=== PATIENT | male | born 1985 | race Caucasian/White ===

== ENCOUNTER 2020-11-19 21:28 | Emergency (ER) | payer SELFPAY ==
[2020-11-19 21:35] VITALS: BP 139/72
--- NOTE | 2020-11-19 21:43 | Event Note ---
ED Screening Note Date of service: 11/19/20 Time: 21:41 ED Screening Note: Patient is a 35-year-old male with history of GERD who presented for epigastric pain x3 days. Symptoms described as pressure to epigastrium. Symptoms are exacerbated by eating and recumbent position. Symptoms are relieved by nothing tried. Patient denies nausea vomiting. States pain is getting progressively worse. Urine is scantchange based on patients health status, clinical progression and re-assessment by fellow clinical providers in the ED. Further treatment and workup at subsequent clinical providers discretion. Patient/guardian urged not to elope from the ED as their condition may be serious if not clinically assessed and managed. Initial orders include: cbc, cmp, ua, lipase
[2020-11-19 22:29] LABS: Basophils # (Auto) 0.1 K/mm3 (0.0-0.1); Basophils % (Auto) 1.1 % (0.0-1.8); Eosinophils # (Auto) 0.4 K/mm3 (0.0-0.4); Eosinophils % (Auto) 7.1 % (0.0-4.3); Hematocrit 44.9 % (35.5-45.6); Hemoglobin 15.1 gm/dl (11.8-15.2); Lymphocytes % (Auto) 34.3 % (13.4-35.0); Mean Corpuscular HGB Conc 34 % (32-34); Mean Corpuscular Volume 92 fl (84-94); Monocytes # (Auto) 0.4 K/mm3 (0.0-0.8); Monocytes % (Auto) 6.7 % (0.0-7.3); Platelet Count 224 K/mm3 (140-440); Red Blood Count 4.87 M/mm3 (3.65-5.03); Red Cell Distribution Width 12.6 % (13.2-15.2)
[2020-11-19] MEDS ORDERED: FAMOTIDINE 20 MG TAB PO ONE (22:33)
[2020-11-19] MEDS ORDERED: SUCRALFATE 1 GM/10 ML ORAL LIQD PO ONE (22:33)
--- NOTE | 2020-11-19 22:38 | Emergency Department Report ---
ED General Adult HPI - General Chief complaint: Abdominal Pain Stated complaint: ABDOMINAL PAIN PUI?: No Time Seen by Provider: 11/19/20 22:07 Source: patient, RN notes reviewed, old records reviewed Mode of arrival: Ambulatory Limitations: No Limitations - History of Present Illness Initial comments: The patient was evaluated in the emergency department for symptoms described in the history of present illness. He/she was evaluated in the context of the global COVID-19 pandemic, which necessitated consideration that the patient might be at risk for infection with the virus that causes COVID-19. Institutional protocols and algorithms that pertain to the evaluation of patients at risk for COVID-19 are in a state of rapid change based on information released by regulatory bodies including the CDC and federal and state organizations. These policies and algorithms were followed during the patient's care in the emergency department. Please note that these policies, procedures and recommendations changed on a rapid basis. The patient is a 35-year-old gentleman. He is not known to myself previously. He is currently visiting the [employer] from [facility], for a work-related project. He has medical [place] from [place] with [place], including an upper endoscopy performed within the past year and a half, negative for H. pylori, positive for antral gastritis, also had a right upper quadrant ultrasound, which demonstrated fatty liver disease, but no acute findings. He was diagnosed with gastritis so he says, and placed on a proton pump inhibitor, Dexilant. He reports that he Was presumptively diagnosed with GERD/gastritis, likely secondary to NSAID consumption, and alcohol use. He presents to the ER today with a complaint of epigastric burning, which started approximately 2 days ago, prior to the initiation of his flight. He denies headache, neck pain, chest pain, shortness of breath, vomiting, diaphoresis, hematemesis, bright red blood per rectum, urinary symptoms and testicular pain. The pain is cramping, and is relieved with rest, worsens with certain position, and worsened with certain food. Patient denies NSAID consumption, as well as alcohol consumption. -: Gradual, days(s) Location: abdomen Radiation: non-radiation Severity scale (0 -10): 6 Quality: aching Consistency: other Improves with: other Worsens with: other - Related Data Previous Rx's Medication Instructions Recorded Last Taken Type Acetaminophen [Non-Aspirin Extra 500 mg PO Q6HR PRN #30 tablet 11/19/20 Unknown Rx Strength] Famotidine [Pepcid] 20 mg PO BID #60 tablet 11/19/20 Unknown Rx Allergies Allergy/AdvReac Type Severity Reaction Status Date / Time NSAIDS (Non-Steroidal Allergy Unknown Verified 11/19/20 21:35 Anti-Inflamma ED Review of Systems ROS: Stated complaint: ABDOMINAL PAIN Other details as noted in HPI Comment: All other systems reviewed and negative Gastrointestinal: abdominal pain ED Past Medical Hx - Past Medical History Previous Medical History?: No - Surgical History Past Surgical History?: Yes Additional Surgical History: Hernia - Social History Smoking Status: Former Smoker Substance Use Type: None - Medications Home Medications: Home Medications Medication Instructions Recorded Confirmed Last Taken Type Acetaminophen [Non-Aspirin Extra 500 mg PO Q6HR PRN #30 tablet 11/19/20 Unknown Rx Strength] Famotidine [Pepcid] 20 mg PO BID #60 tablet 11/19/20 Unknown Rx ED Physical Exam - General Limitations: No Limitations General appearance: alert, anxious - Head Head exam: Present: atraumatic, normocephalic - Eye Eye exam: Present: normal appearance, EOMI. Absent: nystagmus - ENT ENT exam: Present: normal exam, normal orophraynx, mucous membranes moist, normal external ear exam - Neck Neck exam: Present: normal inspection, full ROM. Absent: tenderness, meningismus - Respiratory Respiratory exam: Present: normal lung sounds bilaterally. Absent: respiratory distress, wheezes, rales, rhonchi, stridor, decreased breath sounds - Cardiovascular Cardiovascular Exam: Present: normal rhythm, bradycardia, normal heart sounds. Absent: tachycardia, irregular rhythm, systolic murmur, diastolic murmur, rubs, gallop - GI/Abdominal GI/Abdominal exam: Present: soft, normal bowel sounds. Absent: distended, tenderness, guarding, rebound, rigid, pulsatile mass - Rectal Rectal exam: Present: deferred - Extremities Exam Extremities exam: Present: normal inspection, full ROM, other (2+ pulses noted in the bilateral upper and lower extremities. There is no palpable cord. negative Homans sign. Muscular compartments are soft. The pelvis is stable.). Absent: pedal edema, calf tenderness - Back Exam Back exam: Present: normal inspection, full ROM. Absent: tenderness, CVA tenderness (R), CVA tenderness (L), paraspinal tenderness, vertebral tenderness - Neurological Exam Neurological exam: Present: alert, oriented X3, normal gait, other (No facial droop. Tongue midline. Extraocular movements intact bilaterally. Facial sensation intact to light touch in V1, V2, V3 distribution bilaterally. 5 and a 5 strength in 4 extremities. Sensation intact to light touch in 4 extremities.). Absent: motor sensory deficit - Psychiatric Psychiatric exam: Present: anxious - Skin Skin exam: Present: warm, dry, intact, normal color. Absent: rash ED Course Vital Signs 11/19/20 21:33 Temperature 97.8 F Pulse Rate 55 L Respiratory 16 Rate Blood Pressure 139/72 [Right] O2 Sat by Pulse 99 Oximetry - Reevaluation(s) Reevaluation #1: 11/19/20 22:54 Laboratory studies unremarkable. EKG with no emergent abnormality. Has n onspecific incidental abnormalities which can be followed up as an outpatient. ED Medical Decision Making - Lab Data Result diagrams: 11/19/20 21:55 11/19/20 21:55 Vital Signs 11/19/20 21:33 Temperature 97.8 F Pulse Rate 55 L Respiratory 16 Rate Blood Pressure 139/72 [Right] O2 Sat by Pulse 99 Oximetry Lab Results 11/19/20 Range/Units 21:55 WBC 6.0 (4.5-11.0) K/mm3 RBC 4.87 (3.65-5.03) M/mm3 Hgb 15.1 (11.8-15.2) gm/dl Hct 44.9 (35.5-45.6) % MCV 92 (84-94) fl MCH 31 (28-32) pg MCHC 34 (32-34) % RDW 12.6 L (13.2-15.2) % Plt Count 224 (140-440) K/mm3 Lymph % (Auto) 34.3 (13.4-35.0) % Thomas % (Auto) 6.7 (0.0-7.3) % Eos % (Auto) 7.1 H (0.0-4.3) % Baso % (Auto) 1.1 (0.0-1.8) % Lymph # (Auto) 2.0 (1.2-5.4) K/mm3 Thomas # (Auto) 0.4 (0.0-0.8) K/mm3 Eos # (Auto) 0.4 (0.0-0.4) K/mm3 Baso # (Auto) 0.1 (0.0-0.1) K/mm3 Seg Neutrophils % 50.8 (40.0-70.0) % Seg Neutrophils # 3.0 (1.8-7.7) K/mm3 Lab Results 11/19/20 11/19/20 11/19/20 Range/Units 21:55 21:55 22:26 WBC 6.0 (4.5-11.0) K/mm3 RBC 4.87 (3.65-5.03) M/mm3 Hgb 15.1 (11.8-15.2) gm/dl Hct 44.9 (35.5-45.6) % MCV 92 (84-94) fl MCH 31 (28-32) pg MCHC 34 (32-34) % RDW 12.6 L (13.2-15.2) % Plt Count 224 (140-440) K/mm3 Lymph % (Auto) 34.3 (13.4-35.0) % Thomas % (Auto) 6.7 (0.0-7.3) % Eos % (Auto) 7.1 H (0.0-4.3) % Baso % (Auto) 1.1 (0.0-1.8) % Lymph # (Auto) 2.0 (1.2-5.4) K/mm3 Thomas # (Auto) 0.4 (0.0-0.8) K/mm3 Eos # (Auto) 0.4 (0.0-0.4) K/mm3 Baso # (Auto) 0.1 (0.0-0.1) K/mm3 Seg Neutrophils % 50.8 (40.0-70.0) % Seg Neutrophils # 3.0 (1.8-7.7) K/mm3 Sodium 138 (137-145) mmol/L Potassium 4.4 (3.6-5.0) mmol/L Chloride 101.7 (98-107) mmol/L Carbon Dioxide 28 (22-30) mmol/L Anion Gap 13 mmol/L BUN 14 (9-20) mg/dL Creatinine 1.0 (0.8-1.3) mg/dL Estimated GFR > 60 ml/min BUN/Creatinine Ratio 14 % Glucose 97 (75-100) mg/dL Calcium 9.9 (8.4-10.2) mg/dL Total Bilirubin 0.80 (0.1-1.2) mg/dL AST 20 (5-40) units/L ALT 16 (7-56) units/L Alkaline Phosphatase 61 (35-129) units/L Total Protein 8.1 (6.3-8.2) g/dL Albumin 4.9 (3.9-5) g/dL Albumin/Globulin Ratio 1.5 % Lipase 60 (13-60) units/L Urine Bilirubin Neg (Negative) Urine RBC (Auto) < 1.0 (0.0-6.0) /HPF - EKG Data -: EKG Interpreted by Ma EKG shows normal: sinus rhythm Rate: bradycardia - EKG Data When compared to previous EKG there are: previous EKG unavailable 11/19/20 22:54 Sinus rhythm, bradycardia, 41 bpm. Rightward axis deviation. Intervals within normal limits. High left ventricular voltage. Not a STEMI. No prior for comparison. - Medical Decision Making Differential diagnosis, including but not limited to: GERD, gastritis, hiatal hernia Assessment and plan: 35-year-old gentleman with a complaint of epigastric discomfort, endoscopically diagnosed with antral gastritis within the past year and a half, likely presenting with exacerbation of underlying known gastritis. He is not currently tachycardic, tachypneic or hypoxic, PERC negative, with no lower extremity exam swelling, or asymmetry, symptoms started prior to his flight, and he denies dietary indiscretions. He is already taking a proton pump inhibitor. We will treat his acute symptoms with Pepcid and Carafate, laboratory studies pending, EKG pending. Diet lifestyle modifications, initiate H2 antagonist, and addition to proton pump inhibitor, he will need to follow-up with outpatient gastroenterology for local primary care. He does not appear to have an emergent medical condition present at this time. No urinary symptoms endorsed, specifically denies urinary symptoms, therefore, urinalysis not indicated. Critical care attestation.: If time is entered above; I have spent that time in minutes in the direct care of this critically ill patient, excluding procedure time. ED Disposition Clinical Impression: History of gastritis, Epigastric abdominal pain Disposition: TO HOME OR SELFCARE Is pt being admited?: No Does the pt Need Aspirin: No Condition: Good Instructions: Gastritis, Adult Additional Instructions: Please continue current outpatient medications. Take the Pepcid as directed, and acetaminophen as needed/directed. Avoid consumption of Motrin, ibuprofen, Naprosyn, Aleve, heavy and spicy foods, alcohol, tobacco, caffeine, coffee, and heavily caffeinated tea. Patient most likely has exacerbation of underlying antrum gastritis. This may take a few days to a few weeks to improve. We do recommend that the patient follow-up with a local primary care doctor or director auto within the next week. Please return to the emergency room right away with new pain, worsened pain, migration of pain, projectile vomiting, change in mental status, confusion, inability to tolerate liquid feeds, new, worsened or different symptoms not present on the initial emergency room evaluation. EKG showed nonspecific nonemergent abnormalities, which should be followed up by a primary care doctor or wheel alignment technician within the next 4 to 6 weeks. Patient may follow-up with his own personal physician in [facility], or follow-up with the listed local primary care or wheel alignment technician, if he so desires Prescriptions: Acetaminophen [Non-Aspirin Extra Strength] 500 mg PO Q6HR PRN #30 tablet PRN Reason: Pain , Severe (7-10) Famotidine [Pepcid] 20 mg PO BID #60 tablet Referrals: [facility] [Provider Group] - 3-5 Days [facility] [Provider Group] - 3-5 Days [facility] [Provider Group] - 3-5 Days
[2020-11-19 22:41] LABS: Alanine Aminotransferase 16 units/L (7-56); Albumin 4.9 g/dL (3.9-5); BUN/Creatinine Ratio 14; Blood Urea Nitrogen 14 mg/dL (9-20); Calcium 9.9 mg/dL (8.4-10.2); Hemolysis Index 38
[2020-11-19 22:42] LABS: Bilirubin,Urine NEG (Negative); Blood,Urine NEG (Negative); Color,Urine Yellow (Yellow); Protein,Urine <15 mg/dL mg/dL (Negative); RBC,Urine < 1.0 /HPF (0.0-6.0); Urobilinogen,Urine < 2.0 mg/dL (<2.0); WBC,Urine < 1.0 /HPF (0.0-6.0)
== END 2020-11-19 23:05 | disposition home or self-care (01) ==
LOC: ED 21:28
DX: R10.13 Epigastric pain (principal); Z88.8 Allergy status to other drugs, medicaments and biological substances; Z79.899 Other long term (current) drug therapy; Z87.891 Personal history of nicotine dependence; Z98.890 Other specified postprocedural states; Z87.19 Personal history of other diseases of the digestive system
CPT/HCPCS: 36415; 80053; 81001; 83690; 85025; 93005